=== PATIENT | female | born 1990 ===

== ENCOUNTER 2022-04-17 17:23 | Day surgery (SDC) | payer BC, MEDICAID ==
[2022-04-17] MEDS ORDERED: Sodium Chloride 0.9% 10 ML Syringe FLUSH PRN (17:47)
[2022-04-17] MEDS ORDERED: Ondansetron 4 MG/2 ML SDV IVPUSH ONE (17:47)
[2022-04-17] MEDS ORDERED: Sodium Chloride 0.9% 1,000 ML IV SCH (18:00)
[2022-04-17] MEDS ORDERED: HYDROmorphone 1 MG/ML Syringe IVPUSH ONE ×2 (18:04→21:03)
[2022-04-17 18:24] LABS: ESTIMATED GFR > 60 mL/min (>60)
[2022-04-17] MEDS ORDERED: Ketorolac 30 MG/ML SDV IVPUSH ONE (20:10)
[2022-04-17] MEDS ORDERED: Lactated Ringers 1,000 ML ONE (21:09)
[2022-04-17] MEDS: Lactated Ringers 1,000 ML IV SCH (21:13)
[2022-04-17] MEDS ORDERED: Dicyclomine 10 MG Cap PO ONE (22:00)
[2022-04-17] MEDS ORDERED: Metoclopramide 10 MG/2 ML SDV IVPUSH ONE (22:23)
[2022-04-18] MEDS: HYDROmorphone 1 MG/ML Syringe IVPUSH PRN ×4 (00:41→09:48)
[2022-04-18] MEDS: Lactated Ringers 1,000 ML IV SCH (03:46)
[2022-04-18] MEDS ORDERED: Bupivacaine 0.5%/EPINEPHrine 1:200,000 50 ML MDV ONE (09:35)
[2022-04-18] MEDS ORDERED: Lidocaine 1% 0 ML ONE (09:42)
[2022-04-18] MEDS ORDERED: Ondansetron 4 MG/2 ML SDV ONE (09:42)
[2022-04-18] MEDS ORDERED: Rocuronium 50 MG/5 ML Vial ONE ×2 (09:42→09:59)
[2022-04-18] MEDS ORDERED: fentaNYL 250 MCG/5 ML SDV ONE ×2 (09:42→10:00)
[2022-04-18] MEDS ORDERED: Midazolam 1 MG/ML 2 ML SDV ONE (09:42)
[2022-04-18] MEDS ORDERED: Propofol 200 MG/20 ML SDV ONE ×2 (09:42→09:59)
[2022-04-18] MEDS ORDERED: Dexamethasone 4 MG/ML 5 ML MDV ONE (09:46)
[2022-04-18] MEDS ORDERED: Lactated Ringers 1,000 ML ONE ×2 (09:53→10:49)
[2022-04-18] MEDS ORDERED: Lidocaine 1% 4 ML ONE (09:59)
[2022-04-18] MEDS ORDERED: Scopolamine 1.5 MG Transdermal Patch TOP ONE (10:00)
[2022-04-18] MEDS ORDERED: HYDROmorphone 0.5 MG/0.5 ML Syringe ONE (10:30)
[2022-04-18] MEDS ORDERED: Neostigmine Methylsulfate 10 MG/10 ML MDV ONE (10:53)
[2022-04-18] MEDS ORDERED: Ketorolac 30 MG/ML SDV ONE (10:54)
[2022-04-18] MEDS ORDERED: oxyCODONE 5 MG Tab PO PRN (11:28)
[2022-04-18] MEDS ORDERED: Ondansetron 4 MG/2 ML SDV IVPUSH PRN (11:30)
[2022-04-18] MEDS ORDERED: diphenhydrAMINE 50 MG/ML SDV IVPUSH PRN (11:30)
[2022-04-18] MEDS ORDERED: fentaNYL 100 MCG/2 ML SDV IVPUSH PRN (11:30)
[2022-04-18] MEDS ORDERED: HYDROmorphone 0.5 MG/0.5 ML Syringe IVPUSH PRN (11:30)
== END 2022-04-18 | disposition home or self-care (01) ==
LOC: JD.ED 17:23 → JD.SDS 04-18 09:09
PROVIDERS: ATTEND Surgery
DX: N83.11 Corpus luteum cyst of right ovary (principal); K66.0 Peritoneal adhesions (postprocedural) (postinfection); F41.9 Anxiety disorder, unspecified; F32.A Depression, unspecified; F17.210 Nicotine dependence, cigarettes, uncomplicated; Z79.899 Other long term (current) drug therapy; Z98.890 Other specified postprocedural states; Z90.49 Acquired absence of other specified parts of digestive tract
CPT/HCPCS: 36415; 49320; 74176; 80053; 81001; 83690; 85025; 86140; 96361; 96374; 96375; 96376; 99285; A9270; J1100; J1170; J1200; J1885; J2250; J2405; J2704; J2710; J2765; J3010; J3490; J7030; J7120; 00840

== ENCOUNTER 2022-08-01 06:58 | Day surgery (SDC) | payer BC ==
[~2022-08-01 06:58] MED LIST: Lactated Ringers 1,000 ML IV SCH; Lidocaine 1% 4 ML ONE; Lidocaine 1%/Sod Bicarbonate in NS 8.4% 1 ML Syringe IDERM PRN; Midazolam 1 MG/ML 2 ML SDV ONE; Propofol 200 MG/20 ML SDV ONE; Rocuronium 50 MG/5 ML Vial ONE; Sodium Chloride 0.9% 10 ML Syringe FLUSH PRN; Sodium Chloride 0.9% 10 ML Syringe FLUSH SCH; fentaNYL 100 MCG/2 ML SDV ONE
[2022-08-01] MEDS ORDERED: Ondansetron 4 MG/2 ML SDV IVPUSH PRN (07:10)
[2022-08-01] MEDS ORDERED: Midazolam 1 MG/ML 2 ML SDV ONE (07:13)
[2022-08-01] MEDS ORDERED: Bupivacaine 0.5% 30 ML SDV ONE (07:22)
[2022-08-01] MEDS ORDERED: ceFAZolin 2 GM Vial ONE (08:00)
[2022-08-01] MEDS ORDERED: Ketorolac 30 MG/ML SDV ONE (08:27)
[2022-08-01] MEDS ORDERED: Ondansetron 4 MG/2 ML SDV ONE (08:27)
[2022-08-01] MEDS ORDERED: Sugammadex Sodium 200 MG/2 ML VIAL ONE (08:37)
[2022-08-01] MEDS: fentaNYL 100 MCG/2 ML SDV IVPUSH PRN ×2 (09:12→09:32)
[2022-08-01] MEDS: HYDROmorphone 0.5 MG/0.5 ML Syringe IVPUSH PRN ×2 (09:20→09:48)
[2022-08-01] MEDS ORDERED: Acetaminophen/oxyCODONE 325-5 MG Tab PO ONE (11:30)
== END 2022-08-01 11:49 | disposition home or self-care (01) ==
LOC: JD.SDS 06:58
PROVIDERS: ATTEND Obstetrics & Gynecology
DX: N83.02 Follicular cyst of left ovary (principal); N83.01 Follicular cyst of right ovary; N80.9 Endometriosis, unspecified; N73.6 Female pelvic peritoneal adhesions (postinfective); F41.9 Anxiety disorder, unspecified; F32.A Depression, unspecified; G47.00 Insomnia, unspecified; F17.210 Nicotine dependence, cigarettes, uncomplicated; Z79.899 Other long term (current) drug therapy; Z98.890 Other specified postprocedural states
CPT/HCPCS: 58661; 81003; 81025; A9270; J0690; J1170; J1885; J2250; J2405; J2704; J3010; J3490; J7120; 00840